=== PATIENT | female | born 1950 | race Caucasian/White ===

== ENCOUNTER 2023-11-09 09:20 | Day surgery (SDC) | payer MEDICARE ==
[~2023-11-09] VITALS: Ht 157.5 cm; Wt 101.2 kg
[~2023-11-09 09:20] MED LIST: ATOR1TAB21 PO; BSS IRRIG/VANCO(10MG)/TOBRA(5MG)/EPINEPH(1:1000-0.5CC)500ML BAG-ORONLY IR ONE; CALC-364 PO; CEFUROXIME 1MG/0.1ML INTRACAMERAL INJ As Ordered ONE; CITA40TA7 PO; CYCLOPENTOLATE 1% OPHTH SOLN 2ML BTL OS SCH; FAMO20TA PO; LIDOCAINE 1% SDV 5ML VIAL As Ordered ONE; LIDOCAINE 3.5 % 1ML OPHTH TOPICAL GEL OU ONE; MELO7.5T35 PO; MIDAZOLAM INJ 2MG/2ML VIAL As Ordered ONE; MOXIFLOXACIN 0.6MG/0.4ML INTRAOCULAR SYRINGE As Ordered ONE; OFLOXACIN 0.3 % (OCUFLOX) OPTH SOL 5ML OS ONE; PHENYLEPHRINE 10% OPHTH SOL 5ML OS PRN; PHENYLEPHRINE 2.5% OPHTH SOL 2ML OS SCH; TROPICAMIDE 1% OPHTH SOLN 15ML OS SCH; fentaNYL 100 MCG/2 ML INJECTION As Ordered ONE
[2023-11-09 11:28] VITALS: BP 143/76; TEMP 97; O2SAT 96
== END 2023-11-09 11:45 | disposition home or self-care (01) ==
LOC: M SDC 09:20
PROVIDERS: ATTEND Ophthalmology
DX: H25.12 Age-related nuclear cataract, left eye (principal); K21.9 Gastro-esophageal reflux disease without esophagitis; Z79.899 Other long term (current) drug therapy
CPT/HCPCS: 66984; J2250; J3010; V2632

== ENCOUNTER 2023-11-16 06:23 | Day surgery (SDC) | payer MEDICARE ==
[~2023-11-16] VITALS: Ht 157.5 cm; Wt 100.7 kg
[~2023-11-16 06:23] MED LIST changes: -BSS IRRIG/VANCO(10MG)/TOBRA(5MG)/EPINEPH(1:1000-0.5CC)500ML BAG-ORONLY IR ONE; -CEFUROXIME 1MG/0.1ML INTRACAMERAL INJ As Ordered ONE; -CYCLOPENTOLATE 1% OPHTH SOLN 2ML BTL OS SCH; -LIDOCAINE 1% SDV 5ML VIAL As Ordered ONE; -LIDOCAINE 3.5 % 1ML OPHTH TOPICAL GEL OU ONE; -MIDAZOLAM INJ 2MG/2ML VIAL As Ordered ONE; -MOXIFLOXACIN 0.6MG/0.4ML INTRAOCULAR SYRINGE As Ordered ONE; -OFLOXACIN 0.3 % (OCUFLOX) OPTH SOL 5ML OS ONE; +PHENYLEPHRINE 10% OPHTH SOL 5ML OD PRN; -PHENYLEPHRINE 10% OPHTH SOL 5ML OS PRN; -PHENYLEPHRINE 2.5% OPHTH SOL 2ML OS SCH; -TROPICAMIDE 1% OPHTH SOLN 15ML OS SCH; -fentaNYL 100 MCG/2 ML INJECTION As Ordered ONE
[2023-11-16] MEDS: PHENYLEPHRINE 2.5% OPHTH SOL 2ML OD SCH (06:47)
[2023-11-16] MEDS: OFLOXACIN 0.3 % (OCUFLOX) OPTH SOL 5ML OD ONE (06:47)
[2023-11-16] MEDS: CYCLOPENTOLATE 1% OPHTH SOLN 2ML BTL OD SCH (06:47)
[2023-11-16] MEDS: LIDOCAINE 3.5 % 1ML OPHTH TOPICAL GEL OU ONE (06:47)
[2023-11-16] MEDS: TROPICAMIDE 1% OPHTH SOLN 15ML OD SCH (06:47)
[2023-11-16] MEDS ORDERED: CEFUROXIME 1MG/0.1ML INTRACAMERAL INJ As Ordered ONE (06:49)
[2023-11-16] MEDS ORDERED: MIDAZOLAM INJ 2MG/2ML VIAL As Ordered ONE (07:19)
[2023-11-16] MEDS: LIDOCAINE 1% SDV 5ML VIAL As Ordered ONE (07:52)
[2023-11-16] MEDS: MOXIFLOXACIN 0.6MG/0.4ML INTRAOCULAR SYRINGE As Ordered ONE (07:52)
[2023-11-16 08:20] VITALS: BP 142/69; TEMP 97; O2SAT 100
== END 2023-11-16 08:35 | disposition home or self-care (01) ==
LOC: M SDC 06:23
PROVIDERS: ATTEND Ophthalmology
DX: H25.11 Age-related nuclear cataract, right eye (principal); K21.9 Gastro-esophageal reflux disease without esophagitis; Z79.899 Other long term (current) drug therapy; Z88.0 Allergy status to penicillin
CPT/HCPCS: 66984; J2250; V2632